=== PATIENT | male | born 1970 | race Caucasian/White ===

== ENCOUNTER 2018-01-11 19:40 | Emergency (ER) | payer OTHER ==
--- NOTE | 2018-01-11 19:52 | EDPHY ---
H & P Stated Complaint: Lowe back injury Time Seen by Provider: 01/11/18 19:46 HPI/ROS: 47yo M presents c/o sudden onset of severe back pain and muscle spasm while squatting with 150 lb weights, he had briefly turned his head to look at his phone and lost his form thus leading to sudden injury of his back , he did not fall, but since that time does not feel like he can stand up straight. No loss of bowel or bladder control , he does feel some radiaiton of pain into his buttocks. No numbness or tingling in extremities. Review of systems as per hpi General no fever no chills no weakness HEENT no eye pain no eye discharge. No eye redness, no sore throat Respiratory no cough, no shortness of breath Cardiac no chest pain, no peripheral edema GI no abdominal pain, no diarrhea, no constipation, no nausea, no vomiting no flank pain, no hematuria, no dysuria Musculoskeletal pos myalgias, no joint pain Heme no easy bruising, no easy bleeding Endo no polyuria, no polydipsia Skin no rashes, no pruritus Neuro no syncope, no dizziness, no headaches Psych is no suicidal ideation, no homicidal ideation Source: Patient Exam Limitations: No limitations - Personal History Current Tetanus/Diphtheria Vaccine: Yes Current Tetanus Diphtheria and Acellular Pertussis (TDAP): Yes Tetanus Vaccine Date: WITHIN 10 YRS - Medical/Surgical History Hx Asthma: No Hx Chronic Respiratory Disease: No Hx Diabetes: No Hx Cardiac Disease: No Hx Renal Disease: No Hx Cirrhosis: No Hx Alcoholism: No Hx HIV/AIDS: No Hx Splenectomy or Spleen Trauma: No Other PMH: denies - Family History Significant Family History: No pertinent family hx - Social History Smoking Status: Never smoked Alcohol Use: Occasionally Drug Use: None - Physical Exam Exam: 47-year-old male alert and oriented in no acute distress initially while lying on the gurney however when attempting to stand up straight he has severe back spasms HEENT atraumatic normocephalic, extraocular muscles intact, anicteric Oropharynx negative for erythema negative exudate, tolerating her own secretions Neck supple no meningismus Lungs clear to auscultation bilaterally Heart regular rate and rhythm without murmur rub or gallop Abdomen nondistended normoactive bowel sounds soft nontender Back no CVA tenderness, no spinal tenderness, Paralumbar back spasm left greater than right DTRs intact bilaterally Extremities no cyanosis clubbing or edema Neuro alert and oriented, no focal deficits Constitutional: Initial Vital Signs Temperature (C) 37.1 C 01/11/18 19:47 Heart Rate 69 01/11/18 19:47 Respiratory Rate 16 01/11/18 19:47 Blood Pressure 142/89 H 01/11/18 19:47 O2 Sat (%) 95 01/11/18 19:47 O2 Delivery Mode Room Air Allergies/Adverse Reactions: amoxicillin [Amoxicillin] Allergy (Intermediate, Verified 09/06/14 14:29) Home Medications: Medication Instructions Recorded Lexapro 05/19/09 buPROPion SR [Wellbutrin Sr (RX)] 150 mg PO 12/05/11 Diazepam [Valium 5 MG (*)] 5 mg PO TID PRN #15 tab 01/11/18 Hydrocodone/Acetaminophen [Mayo 1 - 2 tab PO Q6H PRN #20 tab 01/11/18 5/325 (*)] Medical Decision Making - Diagnostics Imaging Results: Imaging Impressions Lumbar Spine X-Ray 01/11/18 20:29 Impression: 1. Secondary features suggestive of underlying muscle spasm. 2. Likely old mild anterior height reductions at L1 and L2, seen within the context of ventral traction osteophytes and moderate degenerative disk space narrowing. 3. Facet hypertrophy and [id number] L5-S1 degenerative disk space narrowing with trace retrolisthesis. If there is progression of the patient's symptoms and/or development of a radiculopathy, MR imaging could be considered. ED Course/Re-evaluation: Patient seen and evaluated for severe back pain following squatting with 150 lb weight at the gym. IV established and patient given Toradol 30 mg IV push as well as diazepam 5 mg IV push This began to give him some relief next he was given fentanyl 50 mg IV push. He was then taken for lumbar spine films Lumbar spine films negative for compression fracture positive for loss of lordosis consistent with lumbar spasm Impression Lower back pain Severe muscle spasm Plan DC home Diazepam Hydrocodone Ibuprofen Follow-up primary care Differential Diagnosis: Differential diagnosis considered but not limited to Lumbar compression fracture, lumbar strain, lumbar muscle spasm, lower back pain , vertebral fracture, herniated disc - Data Points Medications Given: Discontinued Medications Hydrocodone Bitart/Acetaminophen (Mayo 5/325mg Prepack#6) 1 btl TAKEHOME EDNOW ONE Stop: 01/11/18 21:00 Last Admin: 01/11/18 21:27 Dose: 1 btl Diazepam (Valium) 5 mg IVP EDNOW ONE Stop: 01/11/18 20:16 Last Admin: 01/11/18 20:14 Dose: 5 mg Diazepam (Valium 5 Mg Prepack#4) 1 btl TAKEHOME EDNOW ONE Stop: 01/11/18 20:59 Last Admin: 01/11/18 21:28 Dose: 1 btl Fentanyl (Sublimaze) 50 mcg IVP EDNOW ONE Stop: 01/11/18 20:30 Last Admin: 01/11/18 20:32 Dose: 50 mcg Ketorolac Tromethamine (Toradol) 30 mg IVP EDNOW ONE Stop: 01/11/18 20:03 Last Admin: 01/11/18 20:14 Dose: 30 mg Departure - Departure Disposition: Home, Routine, Self-Care Clinical Impression: Lower back pain, Back muscle spasm Condition: Good Instructions: Low Back Strain (ED), Muscle Spasm (ED) Additional Instructions: Rest Follow up with your primary care Diazepam every 8 hours as needed for spasm Hydrocodone every 4-6 hours for severe pain Ibuprofen every 6 hours for pain, inflammation, must take with food Referrals: Simona Silva DO [Primary Care Provider] - As per Instructions Stand Alone Forms: Physical Education Excuse, Work Excuse Prescriptions: Diazepam [Valium 5 MG (*)] 5 mg PO TID PRN #15 tab PRN Reason: Spasms Hydrocodone/Acetaminophen [Mayo 5/325 (*)] 1 - 2 tab PO Q6H PRN #20 tab PRN Reason: Pain, Moderate
[2018-01-11] MEDS ORDERED: DIAZEPAM 10 MG/2 ML SYR IVP ONE (20:02)
[2018-01-11] MEDS ORDERED: KETOROLAC 30 MG/1 ML SDV IVP ONE (20:02)
[2018-01-11] MEDS ORDERED: DIAZEPAM 5 MG/ML 1 ML SYR ONE (20:06)
[2018-01-11] MEDS ORDERED: DIAZEPAM 5 MG/ML 1 ML SYR IVP ONE (20:15)
[2018-01-11] MEDS ORDERED: fentaNYL 100 MCG/2 ML INJ IVP ONE (20:29)
[2018-01-11] MEDS ORDERED: DIAZEPAM 5 MG PREPACK#4 BTL TAKEHOME ONE (20:58)
[2018-01-11] MEDS ORDERED: HYDROCOD/APAP 5/325 PREPACK#6 BTL TAKEHOME ONE (20:59)
[2018-01-11 21:21] VITALS: BP 111/85
== END 2018-01-11 21:12 | disposition home or self-care (01) ==
LOC: CED 19:40
DX: M54.5 Low back pain (principal); M62.830 Muscle spasm of back; X50.0XXA Overexertion from strenuous movement or load, initial encounter; Y93.B3 Activity, free weights
CPT/HCPCS: 72100-PO; 96374; J1885; J3010; J3360